=== PATIENT | female | born 1975 | race Caucasian/White ===

== ENCOUNTER 2020-06-09 15:30 | Outpatient (RCR) | payer BC, SELFPAY ==
--- NOTE | 2020-05-20 11:42 | HP.PTEVAL_ITS ---
Patient's Visit Information VIJAY DE LA CRUZ is a 44 year old F referred to Physical Therapy by KARRI KHAN with a diagnosis of neuritis and nerve pain s/p release. Date of Evaluation: 05/19/20 Physical Therapist: HUGO Palmer - Visit Plan Frequency: 2x /Week Duration: 2 Months Plan: 2X/ week for 8 weeks for R ankle AROM, strengthening, gait training, balance and coordination with US, E-stim, and heat PRN per order. - Subjective Pt had surgery Apr 01 and they nerve reconstruction on the R Lower extremity. Last year she had 3 foot surgeries that caused nerve damage to the point it was affecting her daily life. She was in a boot and was NWB and just started walking in the last week. She still can not do grocery shoopping due to pain and very swollen. She was in a different boot and it rubbed on the incision and caused an infection about 2 weeks ago... just finished antibiotics over Labor day weekend. She has a compression Stocking and her walking boot. Her leg is mostly up at work and she moves around... it is hard to dangle her leg. She walks a little now without the boot somewhat... and not a long distance. She goes back to the Dr Jun 02 (Dr Karri Khan) wrote the PT order. They are hoping to be out of the boot by June 02. Pt was told to come to PT but her order is unclear at this point. Will confirm with the Dr office tomm..... order and restrictions. Pt does stairs with 2 feet to a step and needs a railing or UE support. Pain wakes her up sometimes. She still has some bleeding and seeping from the incision. She has been doing simple ROM exercises. She ices sometimes.. not as often as she was. - Pain R leg Pain Intensity (Out of 10): 5 - Objective Gait: walks with walking boot....with decrease stance time on the R LE. AROM R ankle: -1 degrees from neutral (DF), PF 50 degrees, INV 15 degrees, Eversion 5 degrees. Trace movement of the toes on the R foot. Girth measurements: 56.8 figure 8, 30.8 lat to med mal, 24.2 met heads. Very decreased sensation little 3 toes lateral..... - Goals Goal 1:: I HEP Goal Time Frame: 4-6 Weeks Goal 2:: Normal gait pattern with great toe push off with ambulation without pain of fatigue. Goal Time Frame: 4-6 Weeks Goal 3:: Increase R ankle AROM 8 degrees DF to 50 degrees PF. Goal Time Frame: 4-6 Weeks Goal 4:: Ankle strength at the time of discharge will be able to heel and toe raise 3 X 10 B with no pain and no signs weakness Goal Time Frame: 6-8 Weeks - Anticipated Interventions Patient/Client Instruction: Educate patient on: Condition, Plan of Care For the Purpose of:: To decrease pain, To increase ROM, To improve nutrient delivery to tissue, To improve muscle performance and motor function, To improve ability to perform ADL's, To increase tolerance to activity/condition/position, To improve performance and independence with ADL's, To decrease level of supervision to perform tasks, To improve ability of physical actions for home/community/work/leisure, To improve gait and locomotor functions, To increase flexibility/ROM, To improve balance, To improve safety with gait Therapeutic Exercise to Include: Strength training, Flexibilty training, Gait and locomotor training, Active ROM For the Purpose of:: To decrease pain, To decrease swelling/inflammation, To increase ROM, To improve nutrient delivery to tissue, To improve muscle performance and motor function, To improve ability to perform ADL's, To increase tolerance to activity/condition/position, To improve performance and independence with ADL's, To decrease level of supervision to perform tasks, To improve ability of physical actions for home/community/work/leisure, To improve gait and locomotor functions, To improve health of tissue, To decrease soft tissue restriction, To increase flexibility/ROM, To improve balance, To improve safety with gait Functional Training to Include: Gait training For the Purpose of:: To improve gait and locomotor functions, To improve safety with gait Thank you for the opportunity to evaluate your patient. For Medicare and Medicare HMO plans, please review the plan of care and approve it. It will need to be FAXED BACK to us at [phone] for Medicare purposes. For Medicare only, by signing this I certify the plan of care. Please let me know if there are questions or concerns regarding this plan of care. Physician Sign ature: Date:
--- NOTE | 2020-07-30 10:20 | HP.PT.NRP ---
VIJAY DE LA CRUZ was seen in my office for initial evaluation on 05/19/20. The following Plan of Care was established for this patient: Initial Frequency: 2x /Week Initial Duration: 2 Months Patient/Client Instruction: Educate patient on: Condition, Plan of Care For the Purpose of:: To decrease pain, To increase ROM, To improve nutrient delivery to tissue, To improve muscle performance and motor function, To improve ability to perform ADL's, To increase tolerance to activity/condition/position, To improve performance and independence with ADL's, To decrease level of supervision to perform tasks, To improve ability of physical actions for home/community/work/leisure, To improve gait and locomotor functions, To increase flexibility/ROM, To improve balance, To improve safety with gait Therapeutic Exercise to Include: Strength training, Flexibilty training, Gait and locomotor training, Active ROM For the Purpose of:: To decrease pain, To decrease swelling/inflammation, To increase ROM, To improve nutrient delivery to tissue, To improve muscle performance and motor function, To improve ability to perform ADL's, To increase tolerance to activity/condition/position, To improve performance and independence with ADL's, To decrease level of supervision to perform tasks, To improve ability of physical actions for home/community/work/leisure, To improve gait and locomotor functions, To improve health of tissue, To decrease soft tissue restriction, To increase flexibility/ROM, To improve balance, To improve safety with gait Functional Training to Include: Gait training For the Purpose of:: To improve gait and locomotor functions, To improve safety with gait This patient was last seen in our office 06/09/20. Pertinent comments regarding their Physical therapy will appear below: [facility] as pt has not kept several of her appointments in order. At this point I will be discontinuing this patient from physical therapy. I would be happy to see this patient again in the future if found appropriate by the physician. Thank you! Tashia Benton, MPT
== END 2020-06-09 19:00 | disposition home or self-care (01) ==
LOC: PT 15:30
DX: M79.2 Neuralgia and neuritis, unspecified (principal); G89.18 Other acute postprocedural pain
CPT/HCPCS: 97014; 97110; 97162; G0283